=== PATIENT | male | born 1965 | race Caucasian/White ===

== ENCOUNTER 2020-11-08 00:24 | Emergency (ER) | payer BC, OTHER ==
[2020-11-08] MEDS ORDERED: Ketorolac Tromethamine 60 MG/2 ML VIAL ONE (01:03)
--- NOTE | 2020-11-08 11:22 | RAD ---
LEFT RIBS WITH PA CHEST: DATE: 11/08/2020. FINDINGS: The heart is normal in size and the mediastinum shows no widening or shift. The lungs are fully infl ated and clear. No effusion or pneumothorax was seen. Numerous old healed rib fractures are noted o n the right and involving the left 3rd rib. No acute rib fractures were appreciated on the left, tho ugh subtle ones might be missed. No secondary findings of rib fracture, such as pleural thickening, were found. As there is no lateral view, I cannot comment confidently on the vertebrae. IF there wa s any lower thoracic pain, then focused films on this area would be needed. IMPRESSION: No acute findings in the chest or ribs. POS: HOME
== END 2020-11-08 01:12 | disposition home or self-care (01) ==
LOC: BURERS 00:24
DX: S22.32XA Fracture of one rib, left side, initial encounter for closed fracture (principal); I10 Essential (primary) hypertension; Z79.899 Other long term (current) drug therapy; W00.0XXA Fall on same level due to ice and snow, initial encounter
CPT/HCPCS: 96372; J1885